=== PATIENT | female | born 1955 | race Caucasian/White ===

== ENCOUNTER 2016-09-13 14:30 | Outpatient (RCR) | payer MEDICARE, MEDICAID ==
[~2016-09-13 14:30] MED LIST: AMBIEN 5MG TABLE5 MG PO; B COMPLEX1 TA2 SL; BENADRYL50 MG PO; CALCIUM 600600 M2 PO; CARDIZEM 30MG T30 MG PO; CEPHALEXIN500 M1 PO; COGENTIN 1MG1 MG/TAB; DESYREL; DESYREL DIVIDO150 M1 PO; IMITREX25 MG PO; KLONOPIN 0.5MG0.5 MG PO; LAMICTAL; LAMICTAL150 MG PO; LEVOTHYROXINE PO; LORTAB 7.5/5001 TAB PO; MULTIVITAMIN FO1 CAP PO; NEURONTIN300 MG/CAP PO; NEXIUM 20MG CAP20 MG PO; NORCO 325 MG-51 TAB PO; PEPCID20 MG PO; PRAVACHOL10 MG PO; PRILOSEC 20MG20 MG PO; SYMMETREL100 M1 PO; SYNTHROID0.125 MG/T PO; TOPIRAMATE; ULTRAM 50MG TAB50 MG PO; ZIPRASIDONE; ZOLOFT 100MG100 MG PO
== END 2016-11-28 | disposition still patient (30) ==
LOC: MKS.ESL.PT
DX: R26.81 Unsteadiness on feet (principal)
CPT/HCPCS: G8990-GP; G8991-GP; G8992-GP

== ENCOUNTER → 2016-12-11 | Outpatient (CLI) | payer MEDICARE, MEDICAID | LOC: BHSO 14:47 | DX: F31.81 Bipolar II disorder (principal) ==

== ENCOUNTER → 2017-01-21 | Outpatient (CLI) | payer MEDICARE, MEDICAID | LOC: BHSO 09:39 | DX: F31.73 Bipolar disorder, in partial remission, most recent episode manic (principal) ==

== ENCOUNTER 2017-04-03 16:26 | Emergency (ER) | payer MEDICARE, MEDICAID ==
[~2017-04-03] VITALS: Ht 170.2 cm; Wt 86.4 kg
[2017-04-03 16:27] VITALS: BP 137/92; PULSE 81; TEMP 97.7
== END 2017-04-03 17:31 | disposition home or self-care (01) ==
LOC: COL.ER 16:26
DX: S70.02XA Contusion of left hip, initial encounter (principal); S50.12XA Contusion of left forearm, initial encounter; I10 Essential (primary) hypertension; Z96.651 Presence of right artificial knee joint; W01.0XXA Fall on same level from slipping, tripping and stumbling without subsequent striking against object, initial encounter; Y92.59 Other trade areas as the place of occurrence of the external cause
CPT/HCPCS: J2270

== ENCOUNTER → 2017-05-02 | Outpatient (CLI) | payer MEDICARE, MEDICAID | LOC: BHSO 14:12 | DX: F31.73 Bipolar disorder, in partial remission, most recent episode manic (principal) ==

== ENCOUNTER → 2017-06-25 | Outpatient (CLI) | payer MEDICARE, MEDICAID | LOC: BHSO 13:05 | DX: F31.73 Bipolar disorder, in partial remission, most recent episode manic (principal) ==

== ENCOUNTER → 2017-09-17 | Outpatient (CLI) | payer MEDICARE, MEDICAID | LOC: BHSO 12:53 | DX: F31.73 Bipolar disorder, in partial remission, most recent episode manic (principal) ==

== ENCOUNTER → 2017-11-26 | Outpatient (CLI) | payer MEDICARE, MEDICAID | LOC: BHSO 13:21 | DX: F31.73 Bipolar disorder, in partial remission, most recent episode manic (principal) | CPT/HCPCS: G0463 ==

== ENCOUNTER → 2018-02-27 | Outpatient (CLI) | payer MEDICARE, MEDICAID | LOC: BHSO 13:29 | DX: F43.10 Post-traumatic stress disorder, unspecified (principal) | CPT/HCPCS: G0463 ==

== ENCOUNTER → 2018-04-29 | Outpatient (CLI) | payer MEDICARE, MEDICAID | LOC: BHSO 09:37 | DX: F43.10 Post-traumatic stress disorder, unspecified (principal) | CPT/HCPCS: G0463 ==

== ENCOUNTER → 2018-06-19 | Outpatient (CLI) | payer MEDICARE, MEDICAID | LOC: BHSO 09:53 | DX: F31.81 Bipolar II disorder (principal) | CPT/HCPCS: G0463 ==

== ENCOUNTER → 2018-09-25 | Outpatient (CLI) | payer MEDICARE, MEDICAID | LOC: BHSO 10:04 | DX: F31.81 Bipolar II disorder (principal) | CPT/HCPCS: G0463 ==

== ENCOUNTER → 2018-12-02 | Outpatient (CLI) | payer MEDICARE, MEDICAID | LOC: BHSO 10:07 | DX: F31.81 Bipolar II disorder (principal) | CPT/HCPCS: G0463 ==

== ENCOUNTER → 2019-03-03 | Outpatient (CLI) | payer MEDICARE, MEDICAID | LOC: BHSO 09:54 | DX: F43.10 Post-traumatic stress disorder, unspecified (principal) | CPT/HCPCS: G0463 ==

== ENCOUNTER → 2019-03-31 | Outpatient (CLI) | payer MEDICARE, MEDICAID | LOC: BHSO 10:07 | DX: F43.10 Post-traumatic stress disorder, unspecified (principal) | CPT/HCPCS: G0463 ==

== ENCOUNTER → 2019-05-06 | Outpatient (CLI) | payer MEDICARE, MEDICAID ==
[~2019-05-06] MED LIST changes: +ARICEPT10 MG PO; +ATARAX50 MG PO; +FETZIMA120; +MAG-OX 400400 MG/TAB PO; +MYSOLINE 5050 MG/TAB PO; +NAMENDA 10MG TA10 MG PO; +SEROQUEL 2525 MG/TAB PO; +SINEMET CR1 UDTAB.S1 PO
== END ==
LOC: BHSO 07:54
DX: F43.10 Post-traumatic stress disorder, unspecified (principal)
CPT/HCPCS: G0463

== ENCOUNTER → 2019-06-11 | Outpatient (CLI) | payer MEDICARE, MEDICAID | LOC: BHSO 10:03 | DX: F43.10 Post-traumatic stress disorder, unspecified (principal) | CPT/HCPCS: G0463 ==

== ENCOUNTER → 2019-07-16 | Outpatient (CLI) | payer MEDICARE, MEDICAID ==
[~2019-07-16] MED LIST changes: +AMBIEN 10MG10 MG PO; +LAMICTAL200 MG PO; +PRIL40 PO; +SINEMET 25/101 UDTAB PO
== END ==
LOC: BHSO 09:21
DX: F43.10 Post-traumatic stress disorder, unspecified (principal)
CPT/HCPCS: G0463

== ENCOUNTER 2019-07-20 09:53 | Emergency (ER) | payer MEDICARE, MEDICAID ==
[~2019-07-20] VITALS: Ht 170.2 cm; Wt 87.3 kg
[~2019-07-20 09:53] MED LIST changes: -AMBIEN 10MG10 MG PO; -LAMICTAL200 MG PO; -PRIL40 PO; -SINEMET 25/101 UDTAB PO
[2019-07-20 10:02] VITALS: TEMP 98.1
[2019-07-20 10:27] LABS: BASO # 0.1 (0.0-0.2); BASO % 1.4 % (0.0-2.0); EOS # 0.2 (0.0-0.7); GRAN # 3.1 (1.4-6.5); GRAN % 56.3 % (42.2-75.2); HEMATOCRIT 41.7 % (37.0-47.0); HEMOGLOBIN 13.9 g/dl (12.5-16.0); LYMPH # 1.7 (1.2-3.4); LYMPH % 29.8 % (20.0-51.0); MEAN CELL VOLUME 96 fl (80.0-100.0); MEAN CORPUSCULAR HEMOGLOBIN 32 pg (27.0-31.0); MEAN CORPUSCULAR HGB CONC 33 g/dl (33.0-37.0); MEAN PLATELET VOLUME 9.2 fl (7.4-10.4); MONO # 0.4 (0.1-0.6); PLATELET COUNT 347 K/mm3 (130-400); RED BLOOD COUNT 4.35 M/mm3 (4.10-5.30); REDCELL DISTRIBUTION WIDTH-CV 12.1 % (11.5-14.5)
[2019-07-20 10:34] LABS: COLLECTION METHOD CLEAN CATCH
[2019-07-20 10:38] LABS: ALANINE AMINOTRANSFERASE < 6 U/L (9-52); ALBUMIN 4.5 gm/dL (3.5-5.0); ALKALINE PHOSPHATASE 111 U/L (50-136); ANION GAP 10 mmol/L (7-16); AST,SGOT 22 U/L (15-37); BILIRUBIN,TOTAL 0.3 mg/dL (0.0-1.0); BLOOD UREA NITROGEN 14 mg/dL (7-17); CALCIUM 9.7 mg/dL (8.4-10.2); CARBON DIOXIDE 30 mmol/L (22-30); CHLORIDE 99 mmol/L (98-107); CREATININE, serum 0.87 (0.52-1.25); GLUCOSE 103 mg/dL (74-106); POTASSIUM 4.4 mmol/L (3.4-5.0); SODIUM 139 mmol/L (137-145); TOTAL PROTEIN 7.5 gm/dL (6.4-8.2)
[2019-07-20 10:51] LABS: ACETAMINOPHEN < 10 ug/mL (10-30); ALCOHOL(ethanol),MEDICAL < 10 mg/dL; SALICYLATE < 1.0 mg/dL
[2019-07-20 10:53] LABS: AMORPHOUS CRYSTAL Present /uL; MUCOUS Present /lpf; PH 8 (5-8); SQUAMOUS EPITHELIAL 0-2 /hpf; URINE APPEARANCE Hazy; URINE BACTERIA None Seen /hpf; URINE BILIRUBIN Negative (NEGATIVE); URINE BLOOD Negative (NEGATIVE); URINE COLOR Yellow; URINE GLUCOSE Negative (NEGATIVE); URINE KETONE Negative (NEGATIVE); URINE LEUKOCYTE ESTERASE Negative (NEGATIVE); URINE NITRATE Negative (NEGATIVE); URINE PROTEIN(semi-quant) Negative (NEGATIVE); URINE RBC 0-2 /hpf; URINE UROBILINOGEN Negative (NEGATIVE)
[2019-07-20 11:00] LABS: TRICYCLIC ANTIDEPRESS URINE NEGATIVE
[2019-07-20 11:08] LABS: TSH w REFLEX 0.532 uIU/mL (0.465-4.680)
[2019-07-20 12:36] VITALS: BP 133/79
[2019-07-20] MEDS ORDERED: LAMICTAL200 MG PO (13:16)
[2019-07-20] MEDS ORDERED: MYSOLINE 5050 MG/TAB PO (13:25)
[2019-07-20] MEDS ORDERED: AMBIEN 10MG10 MG PO (13:26)
[2019-07-20] MEDS ORDERED: SINEMET 25/101 UDTAB PO (13:30)
[2019-07-20] MEDS ORDERED: PRIL40 PO (13:41)
[2019-07-20] MEDS ORDERED: DESYREL DIVIDO150 M1 PO (13:48)
[2019-07-20 14:00] VITALS: PULSE 90
== END 2019-07-20 14:00 | disposition home or self-care (01) ==
LOC: COL.ER 09:53
PROVIDERS: Nurse Practitioner
DX: F30.9 Manic episode, unspecified (principal); Z90.49 Acquired absence of other specified parts of digestive tract; Z90.89 Acquired absence of other organs; Z90.710 Acquired absence of both cervix and uterus

== ENCOUNTER 2019-10-04 13:34 | Observation (INO) | payer MEDICARE, MEDICAID ==
[~2019-10-04] VITALS: Ht 170.2 cm; Wt 83.9 kg
[~2019-10-04 13:34] MED LIST changes: +AMBIEN 10MG10 MG PO; +LAMICTAL200 MG PO; +PRIL40 PO; +SINEMET 25/101 UDTAB PO
[2019-10-04 15:25] VITALS: BP 131/83; PULSE 79; TEMP 97.9
[2019-10-04 17:14] LABS: MAGNESIUM 1.9 mg/dL (1.6-2.3)
[2019-10-04 17:16] VITALS: BP 133/71; PULSE 76
[2019-10-04 17:17] VITALS: BP 115/61; BP 133/55; PULSE 79; PULSE 86
[2019-10-04] MEDS ORDERED: PROTONIX 40MG T40 MG PO (17:25)
[2019-10-04] MEDS ORDERED: REMERON 15M15 MG/TA1 PO (17:29)
[2019-10-04] MEDS ORDERED: EFFEXOR 3737.5 MG/TA PO (17:33)
[2019-10-04] MEDS ORDERED: REQUIP 0.5MG0.5 MG PO (17:34)
[2019-10-04] MEDS ORDERED: CARAFATE 1GM1 G PO (17:36)
[2019-10-04] MEDS ORDERED: MAXITROL OPHTH D5 ML OU (17:37)
[2019-10-04] MEDS ORDERED: NORCO 325 MG-51 TAB PO (17:39)
[2019-10-04 17:54] LABS: TROPONIN-I < 0.012 ng/mL (0.000-0.035)
--- NOTE | 2019-10-04 18:48 | NUR ---
Pt in room, initial assessments complete, no C/O pain at this time.
--- NOTE | 2019-10-04 20:00 | NUR ---
Shift assessment complete. Pt resting in bed, awake, a&o, cooperative c cares. Pt denies pain or any other c/o at this time. IV patent. Tele in place. Pt denies further needs. Call light in reach, will continue to monitor.
[2019-10-04 20:51] VITALS: BP 110/59; PULSE 81; TEMP 98.5
[2019-10-05] VITALS: BP 112/52; PULSE 79; TEMP 98.2
[2019-10-05 04:35] VITALS: BP 119/65; PULSE 77; TEMP 97.9
[2019-10-05 06:51] LABS: BASO # 0.1 (0.0-0.2); EOS # 0.2 (0.0-0.7); EOS % 3.8 % (0-4.0); GRAN # 2.9 (1.4-6.5); GRAN % 57.3 % (42.2-75.2); HEMATOCRIT 40.1 % (37.0-47.0); HEMOGLOBIN 13.2 g/dl (12.5-16.0); LYMPH # 1.4 (1.2-3.4); LYMPH % 27.3 % (20.0-51.0); MEAN CELL VOLUME 97 fl (80.0-100.0); MEAN CORPUSCULAR HEMOGLOBIN 32 pg (27.0-31.0); MEAN CORPUSCULAR HGB CONC 33 g/dl (33.0-37.0); MEAN PLATELET VOLUME 10.7 fl (7.4-10.4); MONO # 0.5 (0.1-0.6); PLATELET COUNT 187 K/mm3 (130-400); RED BLOOD COUNT 4.12 M/mm3 (4.10-5.30)
[2019-10-05 06:56] LABS: ANION GAP 6 mmol/L (7-16); BLOOD UREA NITROGEN 11 mg/dL (7-17); CALCIUM 9.1 mg/dL (8.4-10.2); CARBON DIOXIDE 28 mmol/L (22-30); CHLORIDE 108 mmol/L (98-107); CREATININE, serum 0.71 (0.52-1.25); GLUCOSE 98 mg/dL (74-106); POTASSIUM 4.1 mmol/L (3.4-5.0); SODIUM 142 mmol/L (137-145)
[2019-10-05 07:18] LABS: TROPONIN-I < 0.012 ng/mL (0.000-0.035)
--- NOTE | 2019-10-05 08:10 | NUR ---
Pt awake and alert upon entry, no C/O pain at this time, talkative, shift assessment complete, left Pt call light in reach, bed in lowest position.
[2019-10-05 08:29] VITALS: BP 122/70; PULSE 80; TEMP 98
--- NOTE | 2019-10-05 09:07 | NUR ---
EVERTON met with the patient to discuss discharge plan. The patient lives alone in [place]. She states that her daughter, Briana Cox (ph#[phone]), lives in [place] and is supportive and helps her out. She reports independence with ADLs and has a cane and walker. The patient's PCP is Dr. Sunil Neville and she receives her medications at [facility]. She reports no difficulties obtaining her meds. The patient does not have advanced directives in EMR, but she states that she does have them completed. She states her daughter, Brooke, is her DPOA-HC. The patient plans to return home upon discharge. No additional needs at this time.
--- NOTE | 2019-10-05 09:35 | NUR ---
All medication given at bedside with Instructor Larry Argueta RN, MSN.
[2019-10-05 11:33] VITALS: BP 120/40; PULSE 84; TEMP 98.4
--- NOTE | 2019-10-05 13:04 | NUR ---
Medications administered with Instructor Larry Argueta RN, MSN, at bedside.
--- NOTE | 2019-10-05 14:04 | NUR ---
First visit from the handtools repairer. No needs right now.
[2019-10-05 15:13] VITALS: BP 126/65; PULSE 88; TEMP 98.9
--- NOTE | 2019-10-05 15:47 | NUR ---
telemetry discontinued and she is getting dressed for discharge
--- NOTE | 2019-10-05 16:28 | NUR ---
Pt disacharged to home, INT D/Jorge, escorted Pt to entrance, left with family via private transportation.
== END 2019-10-05 16:30 | disposition home or self-care (01) ==
LOC: MEDICAL 15:06
PROVIDERS: Family Medicine; ADMIT Student in an Organized Health Care Education/Training Program
DX: R55 Syncope and collapse (principal); G20 Parkinson's disease; F02.80 Dementia in other diseases classified elsewhere, unspecified severity, without behavioral disturbance, psychotic disturbance, mood disturbance, and anxiety; E03.9 Hypothyroidism, unspecified; E78.5 Hyperlipidemia, unspecified; F31.9 Bipolar disorder, unspecified; F41.9 Anxiety disorder, unspecified; K21.9 Gastro-esophageal reflux disease without esophagitis; K59.00 Constipation, unspecified; G89.29 Other chronic pain; M54.5 Low back pain; I08.1 Rheumatic disorders of both mitral and tricuspid valves; Z90.710 Acquired absence of both cervix and uterus; Z90.49 Acquired absence of other specified parts of digestive tract; Z96.651 Presence of right artificial knee joint; Z83.3 Family history of diabetes mellitus; Z82.49 Family history of ischemic heart disease and other diseases of the circulatory system; Z88.0 Allergy status to penicillin; Z88.8 Allergy status to other drugs, medicaments and biological substances; Z79.82 Long term (current) use of aspirin
CPT/HCPCS: 99239; G0008; G0378; G0379; J1650; J7030

== ENCOUNTER 2020-10-04 11:15 | Day surgery (SDC) | payer MEDICARE, MEDICAID ==
[2020-10-04] VITALS (10 sets, daily range): BP systolic 107–147; BP diastolic 60–85; PULSE 72–105; TEMP 97.6–98.2
[~2020-10-04] VITALS: Ht 170.2 cm; Wt 115.9 kg
[~2020-10-04 11:15] MED LIST changes: +CARAFATE 1GM1 G PO; +EFFEXOR XR37.5 MG/CA PO; +MAXITROL OPHTH D5 ML OU; +PROTONIX 40MG T40 MG PO; +REMERON 15M15 MG/TA1 PO; +REQUIP 0.5MG0.5 MG PO
--- NOTE | 2020-10-04 12:30 | NUR ---
COMPUTER MAO BOARD IN ROOM 8 NOT WORKING. NOT ABLE TO SCAN MEDICATIONS INTO COMPUTER. MANUAL ENTRY MADE. IT NOTIFIED OF COMPUTER PROBLEM AT 1230 PM.
--- NOTE | 2020-10-04 15:45 | NUR ---
PATIENT ADMITED INTO ROOM 350 POST OP. ORIENTED BUT DROWSY. VSS. DENIES PAIN OR NAUSEA. ABDOMINAL LAP SITES X6 ARE CD&I WITH GLUED CLOSURE. ABD IS ROUND, SOFT AND WITH POSITIVE BOWL SOUNDS. LIQUIDS PROVIDED AT BEDSIDE. HEAD TO TOE ASSESSMENT COMPLETE. ORIENTED TO ROOM. CALL LIGHT IN REACH.
--- NOTE | 2020-10-04 22:00 | NUR ---
PT IN BED, REFUSES HS SLEEP MEDS, REPORTS "I'M SLEEPING FINE". HAS LAP SITES X6, GLUED AND DRY. INDEPENDENT IN ROOM.
[2020-10-05 04:00] VITALS: BP 110/55; BP 125/74; PULSE 80; PULSE 86; TEMP 97.8; TEMP 98.4
--- NOTE | 2020-10-05 06:30 | NUR ---
TAKES AM MED WITHOUT PROBLEM. DENIES NEEDS AT THIS TIME.
[2020-10-05 08:20] VITALS: BP 115/71; PULSE 71; TEMP 98.3
--- NOTE | 2020-10-05 09:30 | NUR ---
Patient alert and oriented, answers questions appropriately. See assessment. Abdomen soft, non tender, non distended. Bowel sounds active x4 quads. +Flatus. Lap sites to abdomen with edges well approximated, no redness or drainage noted. ERAS protocol reviewed with patient. No c/o at this time.
--- NOTE | 2020-10-05 13:05 | NUR ---
Discharge instructions reviewed with patient, verbalized understanding. Discharged via wheelchair to auto/home with family at 1305.
== END 2020-10-05 13:05 | disposition home or self-care (01) ==
LOC: SDCO 11:15 → SURG 15:45 → SDCO 10-05 13:05
DX: K95.09 Other complications of gastric band procedure (principal); E66.01 Morbid (severe) obesity due to excess calories; F32.9 Major depressive disorder, single episode, unspecified; Z90.710 Acquired absence of both cervix and uterus; Z90.49 Acquired absence of other specified parts of digestive tract; Z96.651 Presence of right artificial knee joint; Z88.0 Allergy status to penicillin; Z88.8 Allergy status to other drugs, medicaments and biological substances; E78.5 Hyperlipidemia, unspecified; G47.33 Obstructive sleep apnea (adult) (pediatric); G89.29 Other chronic pain; G43.909 Migraine, unspecified, not intractable, without status migrainosus; F41.9 Anxiety disorder, unspecified; G20 Parkinson's disease; F03.90 Unspecified dementia, unspecified severity, without behavioral disturbance, psychotic disturbance, mood disturbance, and anxiety; Z20.828 Contact with and (suspected) exposure to other viral communicable diseases; E03.9 Hypothyroidism, unspecified; E66.9 Obesity, unspecified
CPT/HCPCS: OP; J0690; J2704; J2710; J2765; J3010; J7120

== ENCOUNTER → 2022-04-17 | Outpatient (CLI) | payer MEDICARE, MEDICAID ==
[2022-04-17 18:38] LABS: HEMOGLOBIN 15.5 g/dl (12.5-16.0); MEAN CELL VOLUME 89 fl (80.0-100.0); MEAN CORPUSCULAR HEMOGLOBIN 29 pg (27-31); MEAN CORPUSCULAR HGB CONC 33 g/dl (33.0-37.0); MEAN PLATELET VOLUME 10.2 fl (7.4-10.4); PLATELET COUNT 397 K/mm3 (130-400); RED BLOOD COUNT 5.27 M/mm3 (4.10-5.30)
[2022-04-17 18:52] LABS: CALCIUM 9.6 mg/dL (8.4-10.2); CREATININE, serum 1.53 mg/dL (0.57-1.11); MAGNESIUM 2.1 mg/dL (1.6-2.6); POTASSIUM 3.7 mmol/L (3.5-4.5)
== END ==
LOC: COL.LAB 18:13
PROVIDERS: Family Medicine
DX: R55 Syncope and collapse (principal)

== ENCOUNTER 2022-06-08 10:10 | Emergency (ER) | payer MEDICARE, MEDICAID ==
[~2022-06-08] VITALS: Ht 165.1 cm; Wt 122.7 kg
[2022-06-08 10:18] VITALS: TEMP 98
[2022-06-08 10:58] LABS: BASO # 0.1 K/mm3 (0.0-0.2); BASO % 1.1 % (0.0-2.0); EOS # 0.2 K/mm3 (0.0-0.7); EOS % 3.3 % (0.0-4.0); GRAN # 3.7 K/mm3 (1.4-6.5); GRAN % 51.8 % (42.2-75.2); HEMATOCRIT 41.4 % (37.0-47.0); HEMOGLOBIN 13.9 g/dl (12.5-16.0); LYMPH # 2.5 K/mm3 (1.2-3.4); LYMPH % 34.8 % (20.0-51.0); MEAN CELL VOLUME 89 fl (80.0-100.0); MEAN CORPUSCULAR HEMOGLOBIN 30 pg (27-31); MEAN CORPUSCULAR HGB CONC 34 g/dl (33.0-37.0); MONO # 0.6 K/mm3 (0.1-0.6); MONO % 8.7 % (1.7-9.3); PLATELET COUNT 294 K/mm3 (130-400); RED BLOOD COUNT 4.68 M/mm3 (4.10-5.30); REDCELL DISTRIBUTION WIDTH-CV 12.9 % (11.5-14.5)
[2022-06-08 11:08] LABS: ALANINE AMINOTRANSFERASE 16 U/L (0-55); ALBUMIN 3.5 gm/dL (3.4-4.8); ALKALINE PHOSPHATASE 91 U/L (40-150); ANION GAP 11 mmol/L (7-16); AST,SGOT 22 U/L (5-34); BILIRUBIN,TOTAL 0.6 mg/dL (0.2-1.2); BLOOD UREA NITROGEN 14 mg/dL (10-20); CALCIUM 9.3 mg/dL (8.4-10.2); CARBON DIOXIDE 22 mmol/L (23-31); CHLORIDE 109 mmol/L (98-107); GLUCOSE 97 mg/dL (70-99); POTASSIUM 4.7 mmol/L (3.5-4.5); SODIUM 142 mmol/L (136-145)
[2022-06-08 11:21] LABS: TROPONIN-I < 0.010 ng/mL (0.00-0.033)
[2022-06-08 15:30] VITALS: BP 148/75; PULSE 88
== END 2022-06-08 15:30 | disposition home or self-care (01) ==
LOC: COL.ER 10:10
PROVIDERS: Nurse Practitioner
DX: R07.89 Other chest pain (principal); Z95.0 Presence of cardiac pacemaker
CPT/HCPCS: J2270; J2405

== ENCOUNTER 2023-04-10 19:20 | Emergency (ER) | payer MEDICARE, MEDICAID ==
[~2023-04-10] VITALS: Ht 165.1 cm; Wt 113.2 kg
[2023-04-10 19:20] VITALS: TEMP 98
[~2023-04-10 19:20] MED LIST changes: +CEFTIN500 MG PO; +CYMBALTA 30MG30 MG PO; +FOLIC ACID 11 MG/TA1 PO; +TOPROL XL 25MG25 MG PO
[2023-04-10 20:02] LABS: BASO # 0.1 K/mm3 (0.0-0.2); BASO % 0.8 % (0.0-2.0); EOS # 0.2 K/mm3 (0.0-0.7); EOS % 2.6 % (0.0-4.0); GRAN # 4.5 K/mm3 (1.4-6.5); GRAN % 52.4 % (42.2-75.2); HEMATOCRIT 40.7 % (37.0-47.0); HEMOGLOBIN 13.7 g/dl (12.5-16.0); LYMPH # 3.1 K/mm3 (1.2-3.4); LYMPH % 35.7 % (20.0-51.0); MEAN CELL VOLUME 90 fl (80.0-100.0); MEAN CORPUSCULAR HEMOGLOBIN 30 pg (27-31); MEAN CORPUSCULAR HGB CONC 34 g/dl (33.0-37.0); MEAN PLATELET VOLUME 10.9 fl (7.4-10.4); MONO # 0.7 K/mm3 (0.1-0.6); MONO % 8.2 % (1.7-9.3); PLATELET COUNT 269 K/mm3 (130-400); RED BLOOD COUNT 4.54 M/mm3 (4.10-5.30); REDCELL DISTRIBUTION WIDTH-CV 12.9 % (11.5-14.5)
[2023-04-10 20:57] LABS: ALANINE AMINOTRANSFERASE 9 U/L (0-55); ALBUMIN 3.5 gm/dL (3.4-4.8); ALKALINE PHOSPHATASE 87 U/L (40-150); ANION GAP 11 mmol/L (7-16); AST,SGOT 12 U/L (5-34); BILIRUBIN,TOTAL 0.7 mg/dL (0.2-1.2); BLOOD UREA NITROGEN 14 mg/dL (10-20); CALCIUM 9.9 mg/dL (8.4-10.2); CARBON DIOXIDE 24 mmol/L (23-31); CHLORIDE 106 mmol/L (98-107); CREATININE, serum 1.23 mg/dL (0.57-1.11); GLUCOSE 103 mg/dL (70-99); POTASSIUM 3.7 mmol/L (3.5-4.5); SODIUM 141 mmol/L (136-145); TOTAL PROTEIN 7.4 gm/dL (6.2-8.1)
[2023-04-10 21:04] LABS: COLLECTION METHOD CLEAN CATCH
[2023-04-10 21:13] LABS: MUCOUS Present (NOT PRESENT); URINE BACTERIA None Seen /hpf (NONE SEEN); URINE RBC 0-2 /hpf (0-2)
[2023-04-10 21:14] LABS: URINE APPEARANCE Clear (CLEAR/HAZY); URINE BLOOD Negative (NEGATIVE); URINE COLOR Yellow (YELLOW); URINE GLUCOSE Negative (NEGATIVE); URINE KETONE Negative (NEGATIVE); URINE NITRATE Negative (NEGATIVE); URINE PROTEIN(semi-quant) Negative (NEGATIVE); URINE UROBILINOGEN 0.2 E.U/dL (0.2-1.0)
[2023-04-10 21:14] LABS: ALCOHOL(ethanol),MEDICAL < 10 mg/dL (0-10); TROPONIN-I < 0.010 ng/mL (0.00-0.033)
[2023-04-10 21:21] LABS: TRICYCLIC ANTIDEPRESS URINE NEGATIVE
[2023-04-10 22:01] VITALS: BP 127/86; PULSE 86
== END 2023-04-10 22:04 | disposition home or self-care (01) ==
LOC: COL.ER 19:20
PROVIDERS: Emergency Medicine
DX: R41.82 Altered mental status, unspecified (principal); E86.0 Dehydration
CPT/HCPCS: J7030

== ENCOUNTER 2023-08-24 09:59 | Emergency (ER) | payer MEDICARE, MEDICAID ==
[~2023-08-24] VITALS: Ht 165.1 cm; Wt 113.6 kg
[2023-08-24 10:01] VITALS: TEMP 97.8
[2023-08-24 11:08] LABS: BASO # 0.1 K/mm3 (0.0-0.2); BASO % 1.2 % (0.0-2.0); EOS # 0.2 K/mm3 (0.0-0.7); EOS % 1.9 % (0.0-4.0); GRAN # 4.8 K/mm3 (1.4-6.5); HEMATOCRIT 44.7 % (37.0-47.0); HEMOGLOBIN 15.1 g/dl (12.5-16.0); LYMPH # 2.2 K/mm3 (1.2-3.4); LYMPH % 28.7 % (20.0-51.0); MEAN CELL VOLUME 89 fl (80.0-100.0); MEAN CORPUSCULAR HEMOGLOBIN 30 pg (27-31); MEAN CORPUSCULAR HGB CONC 34 g/dl (33.0-37.0); MEAN PLATELET VOLUME 10.8 fl (7.4-10.4); MONO # 0.5 K/mm3 (0.1-0.6); MONO % 6.8 % (1.7-9.3); PLATELET COUNT 358 K/mm3 (130-400); RED BLOOD COUNT 5.03 M/mm3 (4.10-5.30); REDCELL DISTRIBUTION WIDTH-CV 12.5 % (11.5-14.5)
[2023-08-24 11:25] LABS: ALANINE AMINOTRANSFERASE 11 U/L (0-55); ALKALINE PHOSPHATASE 97 U/L (40-150); ANION GAP 15 mmol/L (7-16); AST,SGOT 14 U/L (5-34); BLOOD UREA NITROGEN 14 mg/dL (10-20); CALCIUM 10.3 mg/dL (8.4-10.2); CARBON DIOXIDE 21 mmol/L (23-31); CHLORIDE 107 mmol/L (98-107); CREATININE, serum 1.08 mg/dL (0.57-1.11); GLUCOSE 94 mg/dL (70-99); POTASSIUM 3.9 mmol/L (3.5-4.5); SODIUM 143 mmol/L (136-145)
[2023-08-24 11:34] LABS: COLLECTION METHOD CLEAN CATCH
[2023-08-24 11:46] LABS: TSH w REFLEX 3.337 uIU/mL (0.350-4.940)
[2023-08-24 11:48] LABS: TROPONIN-I < 0.010 ng/mL (0.00-0.033)
[2023-08-24 11:54] LABS: TRICYCLIC ANTIDEPRESS URINE NEGATIVE
[2023-08-24 12:07] LABS: URINE APPEARANCE Clear (CLEAR/HAZY); URINE BLOOD Negative (NEGATIVE); URINE COLOR Yellow (YELLOW); URINE GLUCOSE Negative (NEGATIVE); URINE KETONE Negative (NEGATIVE); URINE NITRATE Negative (NEGATIVE); URINE PROTEIN(semi-quant) Negative (NEGATIVE); URINE UROBILINOGEN 0.2 E.U/dL (0.2-1.0)
[2023-08-24 12:08] LABS: URINE BACTERIA Rare /hpf (NONE SEEN); URINE RBC None Seen /hpf (0-2)
[2023-08-24 12:24] VITALS: BP 135/82; PULSE 78
== END 2023-08-24 12:24 | disposition home or self-care (01) ==
LOC: COL.ER 09:59
PROVIDERS: Physician Assistant
DX: R55 Syncope and collapse (principal); F31.9 Bipolar disorder, unspecified; Z95.0 Presence of cardiac pacemaker; Z86.79 Personal history of other diseases of the circulatory system
CPT/HCPCS: J7120